=== PATIENT | female | born 2000 ===

== ENCOUNTER → 2021-07-21 | Outpatient (REF) | LOC: M LABSMTC 12:52 | PROVIDERS: ATTEND Pediatrics | DX: Z11.52 Encounter for screening for COVID-19 (principal) ==

== ENCOUNTER → 2021-09-11 | Outpatient (CLI) | payer MEDICAID | LOC: M SOG 08:10 | PROVIDERS: ATTEND Orthopaedic Surgery Hand Surgery | DX: M25.531 Pain in right wrist (principal); M79.641 Pain in right hand ==